=== PATIENT | female | born 1985 | race Asian ===

== ENCOUNTER 2017-03-23 17:17 | Emergency (ER) | payer OTHER ==
[~2017-03-23] VITALS: Ht 165.1 cm; Wt 52.0 kg
[2017-03-23 17:18] VITALS: BP 122/72
== END 2017-03-24 01:22 | disposition left against medical advice (07) ==
LOC: ER 18:08
DX: R53.1 Weakness (principal); Z53.21 Procedure and treatment not carried out due to patient leaving prior to being seen by health care provider